=== PATIENT | female | born 1965 | race Caucasian/White ===

== ENCOUNTER 2024-10-21 18:58 | Inpatient (IN) | payer OTHER ==
[~2024-10-21] VITALS: Ht 165.1 cm; Wt 137.2 kg
[2024-10-21 19:21] VITALS: BP 135/73
[2024-10-21] MEDS ORDERED: SODIUM CHLORIDE 0.9% 1,000 ML IV ONE (19:30)
[2024-10-21 19:46] LABS: BASO # 0.0 10*3/uL (0.0-0.1); BASO % 0.4 % (0.0-1.0); EOS # 0.1 10*3/uL (0.0-0.4); EOS % 1.3 % (1.0-4.0); MEAN CELL VOLUME 92.4 fl (81.0-99.0); MEAN CORPUSCULAR HGB 29.7 pg (27.0-31.0); MEAN PLATELET VOLUME 9.8 fl (9.6-12.3); MONO # 0.3 10*3/uL (0.1-1.0); MONO % 4.0 % (3.0-9.0); NEUT # 5.4 10*3/uL (2.3-7.9); NEUT % 77.1 % (47.0-73.0); NUCLEATED RED BLOOD CELL 0.0 % (0.0-0.0); NUCLEATED RED BLOOD CELL 0.0 10*3/uL (0.0-0.0); PLATELET COUNT AUTOMATED 181 10*3/uL (130-400); RED CELL DISTRI WIDTH 12.4 % (0-14.5)
[2024-10-21 20:04] LABS: BUN 13 mg/dl (9-23)
[2024-10-21 20:52] LABS: BILIRUBIN 1+ (Negative); BLOOD 2+ (Negative); CLARITY Clear (Clear); COLOR Orange (Yellow); KETONE Negative (Negative); LEUKO ESTERASE 1+ (Negative); NITRITE Positive (Negative); PH 5.0 (4.5-8.0); SPECIFIC GRAVITY 1.025 (1.001-1.030); UROBILINOGEN 1.0 E.U./dl (0.0-1.0)
[2024-10-21 20:59] LABS: BACTERIA 1+; MUCOUS 1+; RBC 31-40 rbc/hpf (0-2); WBC 16-20 wbc/hpf (0-5)
[2024-10-21] MEDS ORDERED: ACETAMINOPHEN 325 MG TAB PO PRN (23:05)
[2024-10-21] MEDS ORDERED: Phenazopyridine Hydrochlorid2 100 MG TAB PO SCH (23:20)
[2024-10-22 00:30] VITALS: BP 119/55
[2024-10-22] MEDS ORDERED: LEVOTHYROXINE175 MCG PO (00:46)
[2024-10-22] MEDS ORDERED: OMEPRAZOLE40 MG PO (00:46)
[2024-10-22] MEDS ORDERED: AZELASTINE137 MCG/0. NAS (00:47)
[2024-10-22] MEDS ORDERED: GOOD SENSE ALLE10 M2 PO (00:47)
[2024-10-22] MEDS ORDERED: ATORVASTATIN CA20 M1 PO (00:48)
[2024-10-22] MEDS ORDERED: MONTELUKAST SOD10 MG PO (00:48)
[2024-10-22] MEDS ORDERED: LINZESS290 MC1 PO (00:49)
[2024-10-22] MEDS ORDERED: TRAZODONE100 MG PO (00:50)
[2024-10-22] MEDS ORDERED: FLONASE ALLERG9.9 ML NAS (00:51)
[2024-10-22] MEDS ORDERED: MAG-OXIDE200 MG PO (00:52)
[2024-10-22] MEDS ORDERED: NITROFURANTOIN100 M9 PO (00:53)
[2024-10-22] MEDS ORDERED: PROBIOTIC1 EAC7 PO (00:53)
[2024-10-22] MEDS ORDERED: SEMAGLUTID0.25 MG/0. SQ (00:55)
[2024-10-22 06:33] LABS: BASO # 0.0 10*3/uL (0.0-0.1); BASO % 0.5 % (0.0-1.0); EOS # 0.1 10*3/uL (0.0-0.4); EOS % 1.8 % (1.0-4.0); MEAN CELL VOLUME 92.2 fl (81.0-99.0); MEAN CORPUSCULAR HGB 30.2 pg (27.0-31.0); MEAN PLATELET VOLUME 10.2 fl (9.6-12.3); MONO # 0.3 10*3/uL (0.1-1.0); MONO % 4.1 % (3.0-9.0); NEUT # 3.8 10*3/uL (2.3-7.9); NEUT % 58.4 % (47.0-73.0); NUCLEATED RED BLOOD CELL 0.0 % (0.0-0.0); NUCLEATED RED BLOOD CELL 0.0 10*3/uL (0.0-0.0); PLATELET COUNT AUTOMATED 167 10*3/uL (130-400); RED CELL DISTRI WIDTH 12.5 % (0-14.5)
[2024-10-22 07:25] LABS: BUN 14 mg/dl (9-23); FREE T4 1.48 ng/dl (0.89-1.76); LDL CHOLESTEROL 69 mg/dL (9-159); SGPT/ALT 38 U/L (5-49)
[2024-10-22 08:00] VITALS: BP 136/67
[2024-10-22] MEDS ORDERED: LORATADINE 10 MG TAB PO SCH (10:00)
[2024-10-22] MEDS ORDERED: FLUTICASONE PROPIONATE Nasal 16 Gm spray NAS SCH (10:00)
[2024-10-22] MEDS ORDERED: ERTAPENEM1 GM IV (11:05)
[2024-10-22 12:00] VITALS: BP 133/66
[2024-10-22 16:00] VITALS: BP 135/65
[2024-10-22] MEDS ORDERED: ATORVASTATIN CALCIUM 20 MG TAB PO SCH (18:00)
[2024-10-22] MEDS ORDERED: Lidocaine Hydrochloride 30 ML VIAL ONE (18:10)
[2024-10-22 20:00] VITALS: BP 140/73
[2024-10-22] MEDS ORDERED: Azelastine Hydrochloride 30 ML NASAL SPRAY NAS SCH (22:00)
[2024-10-22] MEDS ORDERED: LINACLOTIDE 145 MCG CAP PO SCH (22:00)
[2024-10-23] VITALS: BP 138/68
[2024-10-23 06:00] LABS: BUN 12 mg/dl (9-23)
[2024-10-23 06:20] LABS: BASO # 0.0 10*3/uL (0.0-0.1); BASO % 0.5 % (0.0-1.0); EOS # 0.1 10*3/uL (0.0-0.4); EOS % 2.5 % (1.0-4.0); MEAN CELL VOLUME 93.5 fl (81.0-99.0); MEAN CORPUSCULAR HGB 30.1 pg (27.0-31.0); MEAN PLATELET VOLUME 10.0 fl (9.6-12.3); MONO # 0.3 10*3/uL (0.1-1.0); MONO % 5.8 % (3.0-9.0); NEUT # 3.5 10*3/uL (2.3-7.9); NEUT % 64.2 % (47.0-73.0); NUCLEATED RED BLOOD CELL 0.0 % (0.0-0.0); NUCLEATED RED BLOOD CELL 0.0 10*3/uL (0.0-0.0); PLATELET COUNT AUTOMATED 140 10*3/uL (130-400); RED CELL DISTRI WIDTH 12.5 % (0-14.5)
[2024-10-23 08:00] VITALS: BP 130/59
[2024-10-23] MEDS ORDERED: Ondansetron Hydrochloride 4 MG/2 ML VIAL IV PRN (10:55)
[2024-10-23] MEDS ORDERED: BISACODYL 5 MG TAB PO PRN (11:00)
[2024-10-23 12:00] VITALS: BP 128/64
[2024-10-23] MEDS ORDERED: BISACODYL 5 MG TAB PO ONE (12:55)
[2024-10-23 16:00] VITALS: BP 116/53
[2024-10-23 20:00] VITALS: BP 136/76
[2024-10-24] VITALS: BP 128/69
[2024-10-24 06:33] LABS: BUN 13 mg/dl (9-23)
[2024-10-24 06:46] LABS: BASO # 0.0 10*3/uL (0.0-0.1); BASO % 0.6 % (0.0-1.0); EOS # 0.2 10*3/uL (0.0-0.4); EOS % 2.9 % (1.0-4.0); MEAN CELL VOLUME 92.7 fl (81.0-99.0); MEAN CORPUSCULAR HGB 30.2 pg (27.0-31.0); MEAN PLATELET VOLUME 10.3 fl (9.6-12.3); MONO # 0.3 10*3/uL (0.1-1.0); MONO % 6.2 % (3.0-9.0); NEUT # 3.0 10*3/uL (2.3-7.9); NEUT % 57.4 % (47.0-73.0); NUCLEATED RED BLOOD CELL 0.0 % (0.0-0.0); NUCLEATED RED BLOOD CELL 0.0 10*3/uL (0.0-0.0); PLATELET COUNT AUTOMATED 143 10*3/uL (130-400); RED CELL DISTRI WIDTH 12.5 % (0-14.5)
[2024-10-24 08:00] VITALS: BP 132/72
[2024-10-24 10:29] VITALS: BP 132/61
[2024-10-24 12:00] VITALS: BP 137/79
== END 2024-10-24 15:34 | disposition home health service (06) | DRG 690 ==
LOC: ED 18:58 → 4E 22:11 → EDHOLD 22:11 → 4E 23:31
PROVIDERS: Internal Medicine; Student in an Organized Health Care Education/Training Program; ADMIT Internal Medicine; ATTEND Internal Medicine
DX: N39.0 Urinary tract infection, site not specified (principal); Z16.12 Extended spectrum beta lactamase (ESBL) resistance; K58.9 Irritable bowel syndrome, unspecified; K80.50 Calculus of bile duct without cholangitis or cholecystitis without obstruction; B96.20 Unspecified Escherichia coli [E. coli] as the cause of diseases classified elsewhere; D64.9 Anemia, unspecified; N18.31 Chronic kidney disease, stage 3a; F41.9 Anxiety disorder, unspecified; K21.9 Gastro-esophageal reflux disease without esophagitis; E78.5 Hyperlipidemia, unspecified; R31.9 Hematuria, unspecified; K76.0 Fatty (change of) liver, not elsewhere classified; E03.9 Hypothyroidism, unspecified; Z98.891 History of uterine scar from previous surgery; Z98.84 Bariatric surgery status; Z82.49 Family history of ischemic heart disease and other diseases of the circulatory system; Z81.8 Family history of other mental and behavioral disorders

== ENCOUNTER 2024-10-29 15:36 | Emergency (ER) | payer OTHER ==
[~2024-10-29] VITALS: Ht 165.1 cm; Wt 132.0 kg
[~2024-10-29 15:36] MED LIST: ATORVASTATIN CA20 M1 PO; AZELASTINE137 MCG/0. NAS; ERTAPENEM1 GM IV; FLONASE ALLERG9.9 ML NAS; GOOD SENSE ALLE10 M2 PO; LEVOTHYROXINE175 MCG PO; LINZESS290 MC1 PO; MAG-OXIDE200 MG PO; MONTELUKAST SOD10 MG PO; NITROFURANTOIN100 M9 PO; OMEPRAZOLE40 MG PO; PROBIOTIC1 EAC7 PO; SEMAGLUTID0.25 MG/0. SQ; TRAZODONE100 MG PO
[2024-10-29 16:37] LABS: BASO # 0.0 10*3/uL (0.0-0.1); BASO % 0.3 % (0.0-1.0); EOS # 0.1 10*3/uL (0.0-0.4); EOS % 1.5 % (1.0-4.0); MEAN CELL VOLUME 92.6 fl (81.0-99.0); MEAN CORPUSCULAR HGB 30.1 pg (27.0-31.0); MEAN PLATELET VOLUME 9.8 fl (9.6-12.3); MONO # 0.3 10*3/uL (0.1-1.0); MONO % 4.7 % (3.0-9.0); NEUT # 4.8 10*3/uL (2.3-7.9); NEUT % 72.9 % (47.0-73.0); NUCLEATED RED BLOOD CELL 0.0 % (0.0-0.0); NUCLEATED RED BLOOD CELL 0.0 10*3/uL (0.0-0.0); PLATELET COUNT AUTOMATED 171 10*3/uL (130-400); RED CELL DISTRI WIDTH 12.6 % (0-14.5)
[2024-10-29 16:51] LABS: ACT PARTIAL THROMBO TIME 26.6 SECONDS (20.0-32.1)
[2024-10-29 16:58] LABS: BUN 17 mg/dl (9-23)
[2024-10-29] MEDS ORDERED: ASPIRIN 325 MG ENTERIC COATED PO ONE (17:50)
== END 2024-10-29 18:06 | disposition home or self-care (01) ==
LOC: ED 15:36
PROVIDERS: Emergency Medicine
DX: I82.611 Acute embolism and thrombosis of superficial veins of right upper extremity (principal); E66.9 Obesity, unspecified; Z68.30 Body mass index [BMI] 30.0-30.9, adult; Z79.899 Other long term (current) drug therapy; Z98.890 Other specified postprocedural states; Z98.84 Bariatric surgery status

== ENCOUNTER 2024-10-30 17:02 | Emergency (ER) | payer OTHER ==
[~2024-10-30] VITALS: Ht 165.1 cm; Wt 133.0 kg
== END 2024-10-30 20:32 | disposition home or self-care (01) ==
LOC: ED 17:02
DX: Z45.1 Encounter for adjustment and management of infusion pump (principal); N39.0 Urinary tract infection, site not specified; K21.9 Gastro-esophageal reflux disease without esophagitis; F41.9 Anxiety disorder, unspecified; E78.5 Hyperlipidemia, unspecified; E03.9 Hypothyroidism, unspecified; Z98.890 Other specified postprocedural states; Z79.899 Other long term (current) drug therapy